=== PATIENT | female | born 1945 | race Caucasian/White ===

== ENCOUNTER → 2024-12-29 12:03 | Outpatient (REF) | payer MEDICARE, BC, SELFPAY | LOC: SDSPAT 12:03 | PROVIDERS: ATTENDING PHYSICIAN Surgery; FAMILY PHYSICIAN Internal Medicine | DX: K40.90 Unilateral inguinal hernia, without obstruction or gangrene, not specified as recurrent (principal) | CPT/HCPCS: 36415; 93005 ==

== ENCOUNTER 2025-01-12 06:20 | Day surgery (SDC) | payer MEDICARE, BC, SELFPAY ==
[2024-12-29 14:22] VITALS: BMI 30.9
[2025-01-12] VITALS (16 sets, daily range): BP systolic 94–123; BP diastolic 57–90; BMI 30.9
[2025-01-12] MEDS: NORMOSOL-R/PLASMALYTE-A 1000 IV (08:45)
[2025-01-12] MEDS: TYLENOL 1000 MG PO (08:48)
--- NOTE | 2025-01-12 08:58 | HP.FOC2 ---
Focused History & Physical
Chief Complaint
HPI:
Chief Complaint: Right inguinal hernia
HPI / Indication for Planned Procedure: This is an 79-year-old female who presents with a symptomatic right inguinal hernia. Will plan for a robotic right inguinal hernia repair with mesh.
Relevant Past Medical History: Negative
Relevant Social History: Negative
Relevant Family History: Negative
Relevant Past Surgical History: Negative
Review of Systems
Review of Pertinent Systems: All Systems Negative
Medication
See Medication form for detailed medications: Yes
Medication List (including Herbals & OTC):
Vitamin D3 50,000 units PO MONTHLY 01/05/25
alprazolam 0.25 mg tablet 0.25 mg PO PRN PRN anxiety 01/05/25
amoxicillin 500 mg tablet 2,000 mg PO PRN PRN prior to dental procedures; 01/05/25
aspirin 325 mg tablet 325 mg PO PRN PRN PAIN 01/05/25
bupropion HCl 300 mg 24 hr tablet, extended release 300 mg PO DAILY 01/05/25
calcium carbonate 500 mg PO PRN PRN GERD 01/05/25
donepezil 5 mg tablet 5 mg PO HS 01/05/25
mirabegron 50 mg tablet,extended release 24 hr (Myrbetriq) 50 mg PO DAILY 01/05/25
multivitamin with folic acid 400 mcg tablet (Tab-A-Ganesh) 1 tab PO DAILY 01/05/25
rosuvastatin 10 mg tablet 10 mg PO DAILY 01/05/25
trazodone 50 mg tablet 50 mg PO HS 01/05/25
valsartan 40 mg tablet 40 mg PO HS 01/05/25
Medications Reviewed: Yes
Allergies and Reactions
Patient has Allergies: Yes
Noted Allergies and Reactions:
Allergy/AdvReac Type Severity Reaction Status Date / Time
lisinopril Allergy Unknown Verified 01/12/25 08:29
Pertinent Physical Exam
All Other Systems: Negative
Head/Neck: Normal
Diagnosis / Assessment
This is an 79-year-old female who presents with a symptomatic right inguinal hernia.
Plan / Procedure
Will plan for a robotic right, possible left inguinal hernia repair with mesh.
Anesthesia/Sedation to be done by Anesthesia Provider: Yes
--- NOTE | 2025-01-12 09:17 | W.SUR.PREOP ---
Pre-Operative Surgical Note
-
I have examined this patient prior to the performance of the scheduled procedure.
The patient's condition is unchanged from the time of the current History and
Physical and the patient is able to undergo the scheduled procedure.
--- NOTE | 2025-01-12 11:51 | W.IMMPOSTOP ---
Surgical Immed Post Op Note
-
Primary Surgeon: Tenzin Mueller MD
Assisting Surgeon: None
Pre-op Diagnosis: Right inguinal hernia
Post-op Diagnosis: Bilateral inguinal hernias
Procedure Performed: Robotic bilateral inguinal hernia repairs with mesh
Anesthesia Type: General
Specimen / Cultures: None
Estimated Blood Loss: 7 cc
Complications: None
Operative Findings: Bilateral indirect inguinal hernias containing preperitoneal fat. Round ligaments divided with Weck clips. No direct or femoral components. No cord lipomas. After achieving the critical view of the MPO bilaterally, the spaces
were reinforced with 2 large Bard 3D max mid weight uncoated polypropylene mesh.
--- NOTE | 2025-01-12 11:55 | OR.RPT ---
Operative Report
Operative Report
Patient Name: Lizzie Anderson
: 1945
Date of Operation: 01/12/2025
Preoperative Diagnosis: Reducible Inguinal hernia, right
Postoperative Diagnosis: Bilateral inguinal hernias
Procedure(s):
Robotic bilateral inguinal Hernia Repair with mesh, (FESTUS approach)
Surgeon(s):
Dr. Mueller
Advertising Sales Assistant(s):
CESAR Schmidt
Anesthesia: General
Estimated Blood Loss: 7 cc
Urine Output: None
Drains/Lines/Implants: Large 3D Max Bard mid weight uncoated polypropylene mesh x 2
Specimens: None
Indication for surgery: The patient has a history of groin pain and noted on exam to have a right inguinal Hernia. Following review of therapeutic options they have elected to undergo a minimally invasive repair.
Operative Findings: Bilateral indirect inguinal hernias containing preperitoneal fat. Round ligaments divided with Weck clips. No direct or femoral components. No cord lipomas. After achieving the critical view of the MPO bilaterally, the spaces
were reinforced with 2 large Bard 3D max mid weight uncoated polypropylene mesh.
Details of the operation:
The patient was brought to the Operating Room and placed in the supine position with the arms tucked. IV antibiotics were infused and Venodyne stockings placed. Following uneventful induction of general endotracheal anesthesia, an orogastric tube
was placed. The abdomen was prepped and draped in the usual sterile fashion. The abdomen was entered using a Veress technique which required 1 pass(es), pneumoperitoneum to 15 mmHg was obtained without difficulty. An 8mm trochar was passed through
the abdominal wall roughly 20 cm cephalad to the inguinal canal. We then confirmed that no inadvertent injury was made while passing the trocar or Veress needle. We then placed two additional 8 mm ports in the left upper and right upper quadrants.
We then docked the robot with a Prograsper in the left hand port and monopolar scissors in the right. Large bilateral indirect defects were immediately noted. We then began on the right side by creating a flap at the level of the ASIS laterally
working our way medially to the medial umbilical fold. Staying onto the peritoneum we were able to circumferentially dissect around the hernia sac and and peel it off of the underlying round ligament which was divided with 2 Weck clips. Medially
we identified the midline pubis as well as Indra's ligament and ensured to dissect 2 cm below the pubic rim over the bladder. After exposure of the entire myopectineal orifice we identified and reduced: A medium sized indirect inguinal hernia, no
direct inguinal hernia, no femoral hernia, and no cord lipoma. A similar dissection was performed on the patient's left side with the exact same findings of a medium sized indirect inguinal hernia, no direct or femoral components and no cord
lipoma. After achieving the critical view of the MPO bilaterally, the spaces were reinforced with bilateral large 3D max mid weight uncoated polypropylene mesh which was secured at coopers medially with 2-0 Vicryl stitches as well as superior
laterally. The flaps were then closed with running 2 oh barbed Monocryl suture ensuring that the tail was cut flush with the medial fat pad so that no barbs were exposed. During the closure of the flap an Angiocath was inserted and 20 cc of
quarter percent Marcaine was instilled. The area in the flap cavity was then evacuated of air confirming that the mesh was flush and there were no folds. A small rent in the peritoneum of the right flap was noted and closed with 2-0 Vicryl. All
needles and instruments were then removed and the robot was undocked. The abdomen was then desufflated, and pneumoperitoneum evacuated. All skin sites were then closed with 4-0 Monocryl followed by Dermabond. Counts were correct and overall, the
patient tolerated the procedure well and was taken to the Recovery Room postoperatively in stable condition.
I was the attending physician and performed the procedure with assistance of the PA above. The assistance of CESAR Schmidt was required due to the complexity of the procedure. During the procedure Janene assisted with port placement, instrument
and needle exchanges, and closure of the wound. I was present for all portions of the case, excluding skin closure.
Tenzin Mueller MD
== END 2025-01-12 15:24 | disposition home or self-care (01) ==
LOC: SDS 06:20
PROVIDERS: ATTENDING PHYSICIAN Surgery; FAMILY PHYSICIAN Internal Medicine
DX: K40.20 Bilateral inguinal hernia, without obstruction or gangrene, not specified as recurrent (principal)
CPT/HCPCS: 49650; C1781